=== PATIENT | female | born 1995 | race Caucasian/White ===

== ENCOUNTER 2016-05-20 17:04 | Emergency (ER) | payer BC ==
[~2016-05-20] VITALS: Ht 160 cm; Wt 104.3 kg
[2016-05-20 17:05] VITALS: BP 119/78
[2016-05-20] MEDS ORDERED: ZOFR4TAB3 PO (17:27)
[2016-05-20] MEDS ORDERED: BENT20TA PO (17:27)
[2016-05-20] MEDS ORDERED: ONDANSETRON 4 MG ORAL DISINTEGRATING TAB (S0181) PO ONE (17:30)
== END 2016-05-20 17:39 | disposition home or self-care (01) ==
LOC: M ED 17:33
DX: R11.2 Nausea with vomiting, unspecified (principal); R19.7 Diarrhea, unspecified

== ENCOUNTER 2018-01-01 20:39 | Emergency (ER) | payer SELFPAY, BC, MEDICAID ==
[2018-01-01] MEDS: IPRATROPIUM 0.5MG/ALBUTEROL 2.5MG INH SOL UD 3ML (DUONEB)(J7620) NEB (22:11)
[2018-01-01] MEDS: dexameTHASONE 20 MG/5 ML VIAL (J1100) IV (22:13)
[2018-01-01 22:23] LABS: VENOUS BASE EXCESS 0.1 (-2.0-2.0); VENOUS HCO3 24.9 MEQ/L (23.0-27.0); VENOUS O2 SATURATION 66.4 % (60.0-80.0); VENOUS PARTIAL PRESSURE CO2 40.9 mmHg (38.0-50.0); VENOUS PARTIAL PRESSURE O2 33.2 mmHg (30.0-50.0); VENOUS PH 7.402 UNITS (7.330-7.430); VENOUS STANDARD HCO3 23.8 MEQ/L; VENOUS TOTAL CO2 26.1 MEQ/L (24.0-28.0)
[2018-01-01 22:33] LABS: BASO # 0.1 10^3/uL (0.0-0.2); BASO % 0.7 % (0.0-1.0); EOS # 0.6 10^3/uL (0.0-0.50); EOS % 6.2 % (0.0-3.0); HEMATOCRIT 44.8 % (36.0-47.0); HEMOGLOBIN 14.7 g/dl (12.0-15.5); IMMATURE GRANULOCYTE % 0.3 % (0-3.0); LYMPH # 2.8 10^3/uL (1.5-6.5); LYMPH % 26.9 % (24.0-44.0); MEAN CORPUSCULAR HEMOGLOBIN 27.2 pg (27.0-33.0); MEAN CORPUSCULAR HGB CONC 32.8 g/dl (32.0-36.5); MEAN CORPUSCULAR VOLUME 82.8 fl (80.0-96.0); MONO # 0.6 10^3/uL (0.0-0.8); MONO % 5.8 % (0.0-5.0); NEUTROPHILS # 6.2 10^3/uL (1.8-7.7); NEUTROPHILS % 60.1 % (36.0-66.0); PLATELET COUNT, AUTOMATED 276 10^3/uL (150-450); RED BLOOD COUNT 5.41 10^6/uL (4.00-5.40); WHITE BLOOD COUNT 10.2 10^3/uL (4.0-10.0)
[2018-01-01 22:56] LABS: ANION GAP 8 MEQ/L (8-16); BLOOD UREA NITROGEN 10 MG/DL (7-18); CALCIUM LEVEL 9.3 MG/DL (8.5-10.1); CARBON DIOXIDE LEVEL 27 MEQ/L (21-32); CHLORIDE LEVEL 108 MEQ/L (98-107); CPK CREATINE PHOSPHOKINASE 185 U/L (26-192); CREATININE FOR GFR 0.81 MG/DL (0.55-1.30); GLOMERULAR FILTRATION RATE > 60.0 (>60); GLUCOSE, FASTING 94 MG/DL (70-100); MB/CK RELATIVE INDEX 1.19 (< OR =4); POTASSIUM SERUM 3.8 MEQ/L (3.5-5.1); SODIUM LEVEL 143 MEQ/L (136-145); TROPONIN I < 0.02 NG/ML (< 0.10)
[2018-01-01] MEDS ORDERED: ISOVUE-370 76% 100ML VIAL (Q9967) As Ordered (22:59)
[2018-01-01 23:23] LABS: LACTIC ACID SEPSIS PROTOCOL 2.6 MMOL/L (0.4-2.0)
[2018-01-01] MEDS: NS 1,000 ML IV (23:45)
[2018-01-02] MEDS ORDERED: LORazepam 2 MG/ML VIAL (J2060) IV (00:17)
== END 2018-01-02 00:56 | disposition home or self-care (01) ==
LOC: M ED 01-02 00:56
DX: E86.0 Dehydration (principal); F17.200 Nicotine dependence, unspecified, uncomplicated
CPT/HCPCS: J1100